=== PATIENT | female | born 1975 ===

== ENCOUNTER 2021-01-18 06:00 | Outpatient (RCR) | payer OTHER, MEDICARE, MEDICAID, SELFPAY | END 2021-01-27 23:59 | disposition home or self-care (01) | LOC: SST 06:00 | PROVIDERS: Referring Provider Internal Medicine; Visit Provider Internal Medicine | DX: I69.920 Aphasia following unspecified cerebrovascular disease (principal) | CPT/HCPCS: 92607; 92608 ==